=== PATIENT | male | born 1980 | race Caucasian/White ===

== ENCOUNTER 2022-03-26 14:14 | Emergency (ER) | payer OTHER ==
[2022-03-26] MEDS ORDERED: CEPHALEXIN500 MG PO (15:31)
== END 2022-03-26 17:13 | disposition home or self-care (01) ==
LOC: FER 14:14
DX: S60.041A Contusion of right ring finger without damage to nail, initial encounter (principal); W23.0XXA Caught, crushed, jammed, or pinched between moving objects, initial encounter; Y92.89 Other specified places as the place of occurrence of the external cause; Y99.0 Civilian activity done for income or pay
CPT/HCPCS: 73130